=== PATIENT | male | born 1985 | race African-American/Black ===

== ENCOUNTER 2018-09-12 07:11 | Emergency (ER) | payer OTHER ==
[~2018-09-12] VITALS: Ht 177.8 cm; Wt 74.3 kg
[2018-09-12 07:21] VITALS: BP 119/57; PULSE 99; RESP 20; Ht 177.8 cm; Wt 74.3 kg
[2018-09-12] MEDS ORDERED: TETRACAINE 0.5% 4 ML OPH BOTH EYES ONE (08:00)
[2018-09-12] MEDS ORDERED: FLUORESCEIN STRIP BOTH EYES ONE (08:00)
[2018-09-12] MEDS ORDERED: OFLO5DRO46 BOTH EYES (08:38)
--- NOTE | 2018-09-12 14:48 | ERD ---
ER Documentation Chief Complaint Chief Complaint bilat eye stinging/blurred vision x this am welded w/o goggles HPI 33-year-old male presenting with eye irritation. 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 Patient denies any use of contacts or glasses. He states this happened yesterday when he tried cleaning his eyes out with water with no alleviation of symptoms. Denies other medical problems. NKDA. Surgical history denies. Social history denies ROS All systems reviewed and are negative except as per history of present illness. Medications Home Meds Active Scripts Ofloxacin* (Ocuflox*) 0.3%-5 Ml Ophth Drops, 1 DROP BOTH EYES QID, #1 BOTTLE Prov:LUIS JOHNSON PA-C 09/12/18 Allergies Allergies: Coded Allergies: No Known Allergy (Unverified , 09/12/18) PMhx/Soc Medical and Surgical Hx: pt denies Medical Hx, pt denies Surgical Hx Hx Alcohol Use: Yes Hx Substance Use: Yes (Marijuana) Hx Tobacco Use: No Smoking Status: Never smoker FmHx Family History: No diabetes, No coronary disease, No other Physical Exam Vitals Vital Signs Date Temp Pulse Resp B/P (MAP) Pulse Ox O2 O2 Flow FiO2 Time Delivery Rate 09/12/18 98.3 99 20 119/57 98 07:21 (77) Physical Exam GENERAL: The patient is well-appearing, well-nourished, in no acute distress HEENT: Atraumatic. Conjunctivae are pink. Pupils equal, round, and reactive to light. Injection noted to bilateral sclera. Tympanic membranes clear bilaterally. Oropharynx clear. NECK: C-spine is soft and supple. There is no meningismus. There is no cervical lymphadenopathy. CHEST: Clear to auscultation bilaterally. There are no rales, wheezes or rhonchi. HEART: Regular rate and rhythm. No murmurs, clicks, rubs or gallops. Results 24 hrs Current Medications Medications Dose Sig/Emily Start Time Status Last (Trade) Ordered Route PRN Stop Time Admin Dose Reason Admin Tetracaine 1 drop ONCE ONCE 09/12/18 DC HCl BOTH EYES 08:00 (Tetracaine 09/12/18 08:01 0.5% Steri-Unit Ellie) Fluorescein 1 strip ONCE ONCE 09/12/18 DC Sodium BOTH EYES 08:00 ([id number] 09/12/18 08:01 p) Procedures/MDM ER Course: Fluorescein and tetracaine eyedrops applied in ED. No uptake noted and no foreign bodies appreciated. MDM: 33-year-old male presenting with eye pain. I have low suspicion for retained foreign body. Patient may have burn injury secondary to recent welding and will be treated with ophthalmic antibiotic drops. Patient is discharged with strict ER precautions. I have low suspicion for visual deficits. All questions answered at discharge Departure Diagnosis: Primary Impression: Pain in eye Condition: Stable Patient Instructions: Understanding Red Eye: Causes Referrals: [facility] YOU HAVE RECEIVED A MEDICAL SCREENING EXAM AND THE RESULTS INDICATE THAT YOU DO NOT HAVE A CONDITION THAT REQUIRES URGENT TREATMENT IN THE EMERGENCY DEPARTMENT. FURTHER EVALUATION AND TREATMENT OF YOUR CONDITION CAN WAIT UNTIL YOU ARE SEEN IN YOUR DOCTORS OFFICE WITHIN THE NEXT 1-2 DAYS. IT IS YOUR RESPONSIBILITY TO MAKE AN APPOINTMENT FOR FOLOW-UP CARE. IF YOU HAVE A PRIMARY DOCTOR --you should call your primary doctor and schedule an appointment IF YOU DO NOT HAVE A PRIMARY DOCTOR YOU CAN CALL OUR PHYSICIAN REFERRAL HOTLINE AT IF YOU CAN NOT AFFORD TO SEE A PHYSICIAN YOU CAN CHOSE FROM THE FOLLOWING [facility] [address] [facility]. [facility] [address] [facility]. [facility] [address] [facility]. [facility] [address] [facility]. [facility] [phone] [facility]. [facility]. [address] Additional Instructions: FOLLOW UP WITH YOUR PRIMARY CARE PHYSICIAN TOMORROW.Return to this facility if you are not improving as expected. LUIS JOHNSON PA-C Sep 12, 2018 14:48
== END 2018-09-12 09:27 | disposition home or self-care (01) ==
LOC: FTE 07:11
DX: H57.13 Ocular pain, bilateral (principal)
CPT/HCPCS: Z7502; Z7610; 99283